=== PATIENT | male | born 1985 | race Hispanic/Latino ===

== ENCOUNTER 2016-07-02 00:38 | Emergency (ER) | payer SELFPAY ==
[~2016-07-02] VITALS: Ht 162.6 cm; Wt 65.6 kg
[~2016-07-02 00:38] MED LIST: AMPICILLIN500 MG PO; CLARITHROMYC500 M2 PO; PREVACID30 M3 PO
[2016-07-02 00:45] VITALS: BP 155/89
== END 2016-07-02 03:00 | disposition home or self-care (01) | DRG 605 ==
LOC: ED 00:38
DX: S00.31XA Abrasion of nose, initial encounter (principal); F17.210 Nicotine dependence, cigarettes, uncomplicated; F19.90 Other psychoactive substance use, unspecified, uncomplicated; X58.XXXA Exposure to other specified factors, initial encounter

== ENCOUNTER 2016-10-15 13:01 | Emergency (ER) | payer SELFPAY ==
[~2016-10-15] VITALS: Ht 162.6 cm; Wt 70.0 kg
[2016-10-15 14:01] LABS: HEMATOCRIT 26.7 % (39.0-50.0); HEMOGLOBIN 9.3 g/dl (14.0-18.0); IMMATURE GRANULOCYTES 1.4 % (0.0-1.0); MEAN CORPUSCULAR HGB 34.8 pG CALC (26.0-32.0); MEAN CORPUSCULAR HGB CONC 34.8 g/L CALC (32.0-36.0); NEUT# 6.07 thou/uL (1.82-7.42); RED BLOOD COUNT 2.67 mill/uL (4.70-6.10); RED CELL DISTRI WIDTH 18.8 % (11.5-15.5)
[2016-10-15 14:15] LABS: ALBUMIN 3.5 g/dL (3.2-5.0); ALKALINE PHOSPHATASE 362 u/l (38-126); ANION GAP 19 (6-22 (CALC)); BUN 8 mg/dL (9-20); BUN/CREATININE RATIO 12 (12-20 (CALC)); CALCIUM 8.1 mg/dL (8.4-10.2); CARBON DIOXIDE 19 mmol/l (22-30); CHLORIDE 102 mmol/l (95-108); CREATININE 0.7 mg/dL (0.7-1.3); GFR > 60 ML/MIN (>=60 (CALC)); GFR FOR AFR.AMER. > 60 ML/MIN (>=60 (CALC)); GLUCOSE 192 mg/dL (75-110); LIPASE 272 u/l (23-300); POTASSIUM 3.5 mmol/l (3.5-5.1); SGOT/AST 675 u/l (17-59); SGPT/ALT 159 u/l (21-72); SODIUM 136 mmol/l (137-146); TOTAL PROTEIN 7.9 g/dL (6.3-8.2)
[2016-10-15 14:57] LABS: ALBUMIN 3.3 g/dL (3.2-5.0); BILIRUBIN, TOTAL 16.4 mg/dL (0.0-1.4); TOTAL PROTEIN 7.9 g/dL (6.3-8.2)
[2016-10-15 15:00] LABS: DIRECT BILIRUBIN 8.1 mg/dl (0.0-0.3)
[2016-10-15] MEDS ORDERED: AUGMENTIN875TAB PO (15:34)
[2016-10-15 16:08] VITALS: BP 134/78
== END 2016-10-15 16:14 | disposition home or self-care (01) | DRG 443 ==
LOC: ED 13:01
PROVIDERS: Family Medicine
DX: E80.6 Other disorders of bilirubin metabolism (principal); F10.20 Alcohol dependence, uncomplicated; R74.0 Nonspecific elevation of levels of transaminase and lactic acid dehydrogenase [LDH]; K05.10 Chronic gingivitis, plaque induced; F17.200 Nicotine dependence, unspecified, uncomplicated